=== PATIENT | female | born 1965 | race Caucasian/White ===

== ENCOUNTER → 2016-07-29 | Outpatient (CLI) | payer BC ==
--- NOTE | 2016-07-29 14:21 | KCIC ---
PROCEDURE Bilateral screening mammogram HISTORY 50-year-old asymptomatic female presents for annual screening mammogram. COMPARISON July 12, 2015. FINDINGS Bilateral digital screening mammograms are obtained with CAD. There are scattered areas of fibroglandular density (tissue density B). Nodular asymmetry is seen in the lateral left breast. Otherwise, no dominant suspicious mass, suspicious microcalcifications, or architecture distortion is identified in either breast. IMPRESSION Recommend spot compression CC view of the left breast, with ultrasound as indicated, for further evaluation of a nodular asymmetry in the lateral breast. BI-RADS category 0: Incomplete Mammography is not 100% sensitive in detecting breast cancer. Therefore, a self breast exam and a clinical breast exam are very important. A negative mammogram does not negate a clinically suspicious finding and should not result in a delay in biopsying a clinically suspicious abnormality. Electronically signed by: Kendra Valdez (Jul 29, 2016 14:20:25)
== END | disposition home or self-care (01) ==
LOC: KCIC MAMMO 09:27
PROVIDERS: ATTEND Family Medicine
DX: Z12.31 Encounter for screening mammogram for malignant neoplasm of breast (principal)
CPT/HCPCS: G0202; 77067

== ENCOUNTER → 2017-02-05 | Outpatient (CLI) | payer BC ==
--- NOTE | 2017-02-05 09:27 | RAD ---
DATE: 02/05/2017 EXAM: MAMMO MI DIAG LT HISTORY: Follow-up nodule COMPARISON: 08/06/2016 The breast parenchyma shows scattered fibroglandular densities. Breast parenchyma level B. FINDINGS: 2-D and 3-D tomosynthesis imaging of the left breast was performed in CC and MLO projections. There is a persistent 5-6 mm smooth nodule in the posterolateral aspect of the left breast, best seen on CC mi image #25. It is unchanged. No new or enlarging breast densities are seen. No suspicious microcalcifications are evident. IMPRESSION: Stable small right breast nodule. Follow-up bilateral mammography in 6 months is suggested. BI-RADS CATEGORY: 3 PROBABLY BENIGN FINDING(S)-SHORT INTERVAL FOLLOW-UP SUGGESTED RECOMMENDED FOLLOW-UP: 6M 6 MONTH FOLLOW-UP PQRS compliance statement: Patient information was entered into a reminder system with a target due date for the next mammogram. Mammography is a sensitive method for finding small breast cancers, but it does not detect them all and is not a substitute for careful clinical examination. A negative mammogram does not negate a clinically suspicious finding and should not result in delay in biopsying a clinically suspicious abnormality. "Our facility is accredited by the [employer] Mammography Program."
== END | disposition home or self-care (01) ==
LOC: KCIC MAMMO 08:10
PROVIDERS: ATTEND Family Medicine
DX: N63 Unspecified lump in breast (principal)
CPT/HCPCS: G0206; G0279; 77061; 77065

== ENCOUNTER 2017-10-21 08:36 | Emergency (ER) | payer BC ==
[2017-10-21 09:18] LABS: ADD MAN DIFF? NO
[2017-10-21] MEDS: fentaNYL PF VIAL 100 MCG/2 ML VIAL IV ×3 (09:21→10:23)
[2017-10-21 09:27] LABS: BASO % 0 % (0-3); EOS # 0.1 x10^3/uL (0.0-0.7); EOS % 1 % (0-3); HEMOGLOBIN 14.2 g/dL (12.0-15.5); LYMPH % 20 % (24-48); MEAN CORPUSCULAR HEMOGLOBIN 31 pg (25-35); MEAN CORPUSCULAR HGB CONC 34 g/dL (31-37); MEAN CORPUSCULAR VOLUME 91 fL (79-100); MONO # 0.5 x10^3/uL (0.0-1.1); MONO % 6 % (0-9); NEUT # 7.3 x10^3uL (1.8-7.7); NEUT % 74 % (31-73); PLATELET COUNT 251 x10^3/uL (140-400); RED BLOOD COUNT 4.61 x10^6/uL (3.50-5.40); RED CELL DISTRIBUTION WIDTH 12.9 % (11.5-14.5); WHITE BLOOD COUNT 9.9 x10^3/uL (4.0-11.0)
[2017-10-21 09:36] LABS: INR 1.1 (0.8-1.1); PARTIAL THROMBOPLASTIN TIME 29 SEC (24-38); PROTHROMBIN TIME PATIENT 13.3 SEC (11.7-14.0)
[2017-10-21 09:50] LABS: ANION GAP 9 (6-14); BLOOD UREA NITROGEN 19 mg/dL (7-20); CALCIUM 9.6 mg/dL (8.5-10.1); CARBON DIOXIDE 27 mmol/L (21-32); CHLORIDE 106 mmol/L (98-107); CREATININE 1.2 mg/dL (0.6-1.0); GFR 47.4; GLUCOSE 136 mg/dL (70-99); POTASSIUM 3.3 mmol/L (3.5-5.1); SODIUM 142 mmol/L (136-145)
[2017-10-21] MEDS: LIDOCAINE 1% PF 30 ML VIAL. INJ (10:27)
[2017-10-21] MEDS: HYDROmorphone 2 MG/ML VIAL IVP (11:45)
== END 2017-10-21 13:30 | disposition home or self-care (01) ==
LOC: ER 08:36
DX: S52.502A Unspecified fracture of the lower end of left radius, initial encounter for closed fracture (principal); S52.612A Displaced fracture of left ulna styloid process, initial encounter for closed fracture; Z88.1 Allergy status to other antibiotic agents; Z98.51 Tubal ligation status; W06.XXXA Fall from bed, initial encounter; Y93.89 Activity, other specified; Y92.89 Other specified places as the place of occurrence of the external cause; Y99.8 Other external cause status
CPT/HCPCS: 25605; 36415; 73100; 73110; 80048; 85025; 85610; 85730; 96374; 96375; 96376; 99285-25; J1170; J3010

== ENCOUNTER 2017-10-28 06:09 | Day surgery (SDC) | payer BC ==
[~2017-10-28 06:09] MED LIST: MORPHINE SULFATE 4 MG/ML DISP.SYRIN. IV; ceFAZolin SODIUM 3 GM in IV DEXTROSE 5% 100ML 100 ML IV
[2017-10-28] MEDS ORDERED: PROCHLORPERAZINE 10 MG/2 ML VIAL. IV (07:00)
[2017-10-28] MEDS ORDERED: fentaNYL PF VIAL 100 MCG/2 ML VIAL IV (07:00)
[2017-10-28] MEDS: IV RINGERS,LACTATED 1000ML 1,000 ML IV (07:00)
[2017-10-28] MEDS ORDERED: LIDOCAINE 1% PF 2 ML VIAL. ID (07:00)
[2017-10-28] MEDS ORDERED: ONDANSETRON PF 4 MG/2 ML VIAL. IV (07:00)
[2017-10-28] MEDS ORDERED: LIDOCAINE 2% PF Vial for OR 5 ML VIAL. (07:01)
[2017-10-28] MEDS ORDERED: fentaNYL PF VIAL 100 MCG/2 ML VIAL ×2 (07:01→07:54)
[2017-10-28] MEDS ORDERED: PROPOFOL 20 ML IV (07:01)
[2017-10-28] MEDS ORDERED: SEVOFLURANE 31 TO 60 MINUTES. IH (07:30)
[2017-10-28] MEDS ORDERED: DEXAMETHASONE SOD PHOS 20 MG/5 ML VIAL. (07:30)
[2017-10-28] MEDS: BUPIVACAINE MPF 0.5% 30 ML VIAL. (07:43)
[2017-10-28] MEDS: LIDOCAINE 1% PF 30 ML VIAL. (07:43)
[2017-10-28] MEDS ORDERED: ONDANSETRON PF 4 MG/2 ML VIAL. (07:44)
[2017-10-28] MEDS: fentaNYL PF VIAL 100 MCG/2 ML VIAL IV ×4 (09:07→09:24)
[2017-10-28] MEDS: HYDROmorphone 2 MG/ML VIAL IV ×4 (09:36→10:06)
[2017-10-28] MEDS: HYDROcodone/APAP 5/325MG 1 TAB TABLET PO (09:50)
== END 2017-10-28 10:43 | disposition home or self-care (01) ==
LOC: SURG 06:09
DX: S52.572A Other intraarticular fracture of lower end of left radius, initial encounter for closed fracture (principal); Z98.890 Other specified postprocedural states; Z72.89 Other problems related to lifestyle; Z83.6 Family history of other diseases of the respiratory system; Z83.3 Family history of diabetes mellitus; Z79.899 Other long term (current) drug therapy; Z88.1 Allergy status to other antibiotic agents; W19.XXXA Unspecified fall, initial encounter; Y93.89 Activity, other specified; Y92.098 Other place in other non-institutional residence as the place of occurrence of the external cause; Y99.8 Other external cause status
CPT/HCPCS: 25608; 76000; A7015; C1713; J0690; J0780; J1100; J1170; J2001; J2405; J2704; J3010; J3490

== ENCOUNTER → 2018-01-13 | Outpatient (CLI) | payer BC | END | disposition home or self-care (01) | LOC: KCIC 11:23 | DX: M25.571 Pain in right ankle and joints of right foot (principal) | CPT/HCPCS: 73610; 73630 ==